=== PATIENT | male | born 1985 | race Caucasian/White ===

== ENCOUNTER 2017-10-17 14:36 | Emergency (ER) | payer OTHER, BC ==
[~2017-10-17] VITALS: Ht 167.6 cm; Wt 73.6 kg
[~2017-10-17 14:36] MED LIST: Z.0.NO CURRENT MEDS
[2017-10-17 14:38] VITALS: BP 120/78; PULSE 72; RESP 14; TEMP 98.2; O2SAT 96
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
[2017-10-17] MEDS ORDERED: IBUP1TAB7 PO (16:42)
[2017-10-17] MEDS ORDERED: ROBA500T PO (16:42)
[2017-10-17] MEDS ORDERED: IBUPROFEN 800 MG TAB PO ONE (16:45)
[2017-10-17] MEDS ORDERED: METHOCARBAMOL 500 MG TAB PO ONE (16:45)
== END 2017-10-17 17:18 | disposition home or self-care (01) ==
LOC: NEPK 14:36
DX: S39.92XA Unspecified injury of lower back, initial encounter (principal); S16.1XXA Strain of muscle, fascia and tendon at neck level, initial encounter; R07.81 Pleurodynia; F17.200 Nicotine dependence, unspecified, uncomplicated; V49.9XXA Car occupant (driver) (passenger) injured in unspecified traffic accident, initial encounter; Z79.899 Other long term (current) drug therapy
CPT/HCPCS: 71046; 72100; 99284